=== PATIENT | male | born 1985 | race Caucasian/White ===

== ENCOUNTER 2017-05-05 10:05 | Emergency (ER) | payer SELFPAY ==
[2017-05-05] MEDS ORDERED: HYDROcodone/ACETAMIN 5-325 MG* 1 TAB PO ONE (14:41)
--- NOTE | 2017-05-05 14:48 | UC ---
Minor Trauma HPI - HPI Summary HPI Summary: 32 yo male was at work parking lot this AM slipped on ice no LOC c/o back>neck>left wrist>right wrist pain no bowel or bladder dysfunction no leg pain or paresthesia - History of Current Complaint Chief Complaint: UCGeneralIllness Stated Complaint: BACK INJURY Time Seen by Provider: 05/05/17 14:29 Hx Obtained From: Patient Onset/Duration: Gradual Onset Onset Of Pain: Immediate Severity Initially: Severe Severity Currently: Severe Pain Intensity: 9 Pain Scale Used: Adult Non Verbal Mechanism Of Injury: Fall From A Standing Position Aggravating Factor(s): Ambulation, Deep Breaths, Movement Alleviating Factor(s): Nothing Associated Signs And Symptoms: Negative: Loss Of Consciousness, Ecchymosis, Swelling Related History: Positive: Occupational Injury - Allergies/Home Medications Allergies/Adverse Reactions: Allergies Allergy/AdvReac Type Severity Reaction Status Date / Time No Known Allergies Allergy Verified 05/05/17 11:25 PMH/Surg Hx/FS Hx/Imm Hx Previously Healthy: Yes - Surgical History Surgical History: None - Family History Known Family History: Positive: Hypertension - Social History Alcohol Use: Occasionally Substance Use Type: None Smoking Status (MU): Never Smoked Tobacco Review of Systems Constitutional: Negative Skin: Negative Eyes: Negative ENT: Negative Respiratory: Negative Cardiovascular: Negative Gastrointestinal: Negative Genitourinary: Negative Motor: Negative Neurovascular: Negative Musculoskeletal: Arthralgia, Myalgia Neurological: Negative Psychological: Negative Is Patient Immunocompromised?: No All Other Systems Reviewed And Are Negative: Yes Physical Exam Triage Information Reviewed: Yes Appearance: Well-Appearing, No Pain Distress, Well-Nourished, Other: - BMI39 Vital Signs: Initial Vital Signs Temp 97.2 F 05/05/17 11:26 Pulse 58 05/05/17 11:26 Resp 16 05/05/17 11:26 BP 130/80 05/05/17 11:26 Pulse Ox 99 05/05/17 11:26 Vital Signs Reviewed: Yes Eyes: Positive: Conjunctiva Clear ENT: Negative: Nasal congestion, Nasal drainage, Trismus, Muffled voice, Hoarse voice Neck: Positive: Supple, Tenderness @ - right trapezius- no midline cervical tenderness Respiratory: Positive: Normal breath sounds, No respiratory distress, No accessory muscle use Cardiovascular: Positive: RRR, No Murmur Musculoskeletal: Positive: ROM Limited @ - left wrist painful ROM and snuff box tenderness Neurological: Positive: Alert Psychological Exam: Normal Skin Exam: Normal Diagnostics - Radiology No standard instances Xray Interpretation: No Acute Changes Radiology Interpretation Completed By: Radiologist - left wrist and LS Minor Trauma Course/Dx - Differential Dx/Diagnosis Provider Diagnoses: fall. cervical strain. lumbar strain. left wrist sprain Discharge - Discharge Plan Condition: Stable Disposition: HOME Prescriptions: HYDROcodone/ACETAMIN 5-325 MG* [Lamont 5-325 TAB*] 1 tab PO Q4H PRN #12 tab MDD 4 PRN Reason: Pain Naproxen Sodium [Naproxen Sodium 500 MG TAB] 500 mg PO BID PRN #30 tab PRN Reason: Pain Patient Education Materials: Cervical Strain (ED), Low Back Strain (ED), Wrist Sprain (ED) Forms: *Work Release Referrals: Master Back MD [Primary Care Provider] - Additional Instructions: wear left thumb spica splint if your wrist is not completely back to normal in 7-10 days please return to have it re xrayed rest recheck on 05/08 if back not better Images Front/Back of Body, Lg ([place]): 1 - L2-5 midline tenderness/(-) SLR, lower ext DTRs and strenght intact, slow wide based gait. pain with flexion
[2017-05-05 15:20] VITALS: BP 104/67
--- NOTE | 2017-05-05 15:26 | RAD ---
INDICATION: LEFT scaphoid region wrist pain post fall. COMPARISON: No relevant prior exams available [place] [facility] [place]. TECHNIQUE: AP, lateral, and oblique views LEFT wrist. REPORT: No cortical disruption or suspicious trabecular irregularity of the scaphoid evident to indicate fracture. Negative for fracture within the [id number]. Normal articular alignment. Mild nonfocal soft tissue swelling. IMPRESSION: No radiographic evidence for scaphoid fracture. If there is high index of suspicion for an occult scaphoid fracture repeat exam in 7 - 10 days would be suggested.
--- NOTE | 2017-05-05 15:29 | RAD ---
Indication: Back pain following injury. Comparison: No relevant prior exams available on the [facility] [place] for [place]. Technique: AP, lateral, and oblique views lumbar sacral spine. Report: Transitional segment at the lumbar sacral junction most consistent with lumbarization of S1. No evidence for fracture or spondylolysis at any level. Normal lumbar spine alignment. Preserved disc spaces. Facet joint osteoarthritis at L5-S1 and S1-S2. Unremarkable paraspinal soft tissue contours. IMPRESSION: Radiographic evidence for traumatic injury of the lumbar sacral spine. Variant lumbarization of S1. L5-S1 and S1-S2 facet joint osteoarthritis.
== END 2017-05-05 15:57 | disposition home or self-care (01) ==
LOC: UCEAST 10:05
DX: S16.1XXA Strain of muscle, fascia and tendon at neck level, initial encounter (principal); S39.012A Strain of muscle, fascia and tendon of lower back, initial encounter; S63.502A Unspecified sprain of left wrist, initial encounter; W00.2XXA Other fall from one level to another due to ice and snow, initial encounter; Y93.9 Activity, unspecified; Y92.481 Parking lot as the place of occurrence of the external cause; Y99.0 Civilian activity done for income or pay
CPT/HCPCS: 72110; 99203; G0463

== ENCOUNTER 2017-05-08 10:35 | Emergency (ER) | payer SELFPAY ==
[2017-05-08 11:32] VITALS: BP 104/62
--- NOTE | 2017-05-08 11:54 | UC ---
Back Pain HPI - HPI Summary HPI Summary: Pt presents for continued back pain. He was on 05/05 for this s/p falling and landing on his lower back. His pain has been improving, but still doesn't feel able to return to work. He tells me that his work requires a lot of heavy lifting and he doesn't think he will be able to do this due to back pain. Denies numbness, tingling, radiation of pain, bowel or bladder dysfunction. - History of Current Complaint Chief Complaint: UCBackPain Stated Complaint: RECHECK BACK INJURY Time Seen by Provider: 05/08/17 11:54 Hx Obtained From: Patient Onset/Duration: Sudden Onset Timing: Constant Severity Initially: Mild Severity Currently: Mild Pain Intensity: 3 Pain Scale Used: 0-10 Numeric - Allergies/Home Medications Allergies/Adverse Reactions: Allergies Allergy/AdvReac Type Severity Reaction Status Date / Time No Known Allergies Allergy Verified 05/08/17 11:25 Home Medications: Home Medications NK [No Home Medications Reported] 05/08/17 [History Confirmed 05/08/17] PMH/Surg Hx/FS Hx/Imm Hx Previously Healthy: Yes - Surgical History Surgical History: None - Family History Known Family History: Positive: Hypertension - Social History Occupation: Employed Full-time Lives: With Family Alcohol Use: Occasionally Substance Use Type: None Smoking Status (MU): Never Smoked Tobacco Review of Systems Constitutional: Negative Skin: Negative Respiratory: Negative Cardiovascular: Negative Musculoskeletal: Other: - Low back pain Neurological: Negative Psychological: Negative All Other Systems Reviewed And Are Negative: Yes Physical Exam Triage Information Reviewed: Yes Appearance: Well-Appearing, No Pain Distress, Well-Nourished Vital Signs: Initial Vital Signs Temp 97.9 F 05/08/17 11:26 Pulse 49 05/08/17 11:26 Resp 16 05/08/17 11:26 BP 104/62 05/08/17 11:26 Pulse Ox 99 05/08/17 11:26 Vital Signs Reviewed: Yes Neck: Positive: Supple, Nontender, Other: - FROM Respiratory: Positive: Lungs clear, Normal breath sounds, No respiratory distress Cardiovascular: Positive: RRR, No Murmur, Pulses Normal Musculoskeletal: Positive: Strength Intact - B/L LEs, ROM Intact - B/L LEs, No Edema, Other: - TTP over left lumbar paraspinal muscles. Negative SLR. Negative ROX. Neurological: Positive: Alert, Other: - Sensations intact b/l L3-S1. Psychological: Positive: Age Appropriate Behavior Skin: Negative: rashes Back Pain Course/Dx - Course Course Of Treatment: Low back strain. Continue with current treatment. May return to work without restrictions as of 05/11/17 - Differential Dx/Diagnosis Provider Diagnoses: Low back pain Discharge - Discharge Plan Condition: Stable Disposition: HOME Patient Education Materials: Low Back Strain (ED), Lower Back Exercises (ED) Forms: *Work Release Referrals: Master Back MD [Primary Care Provider] - Additional Instructions: If you develop a fever, shortness of breath, chest pain, new or worsening symptoms - please call your PCP or go to the ED.
== END 2017-05-08 12:03 | disposition home or self-care (01) ==
LOC: UCEAST 10:35
DX: M54.5 Low back pain (principal)
CPT/HCPCS: 99211; G0463

== ENCOUNTER 2018-02-02 18:16 | Emergency (ER) | payer BC, OTHER ==
[2018-02-02 18:49] VITALS: BP 130/76
[2018-02-02] MEDS ORDERED: HYDROcodone/ACETAMIN 5-325 MG* 1 TAB PO ONE (19:00)
[2018-02-02] MEDS ORDERED: Amoxicillin PO (*) 500 MG CAP PO ONE (19:01)
--- NOTE | 2018-02-02 19:06 | UC ---
UC Dental HPI - HPI Summary HPI Summary: broke tooth number 22 yesterday has increased pain no pain relief with ibuprofen or hydrocodone today---unable to go to work today because of the pain- --Is planning to see dentist tomorrow (i am concerned he may not get in due to holiday) - History of Current Complaint Chief Complaint: Ricardo Stated Complaint: TOOTH ACHE Time Seen by Provider: 02/02/18 18:51 Hx Obtained From: Patient Onset/Duration: Sudden Onset, Lasting Days - 1, Still Present Severity: Severe Pain Intensity: 9 Pain Scale Used: 0-10 Numeric Aggravating Factor(s): Heat, Cold, Chewing Alleviating Factor(s): Nothing Related History: Previous Dental Care on Same Tooth - Allergies/Home Medications Allergies/Adverse Reactions: Allergies Allergy/AdvReac Type Severity Reaction Status Date / Time No Known Allergies Allergy Verified 05/08/17 11:25 Home Medications: Home Medications Hydrocodone/Acetaminophen [Hydrocodone-Acetamin 2.5-325] 02/02/18 [History] Ibuprofen TAB* [Motrin TAB* 800 MG] 02/02/18 [History] PMH/Surg Hx/FS Hx/Imm Hx Previously Healthy: Yes - Surgical History Surgical History: None - Family History Known Family History: Positive: Hypertension - Social History Occupation: Employed Full-time Lives: With Family Alcohol Use: Daily Substance Use Type: None Smoking Status (MU): Never Smoked Tobacco Review of Systems All Other Systems Reviewed And Are Negative: Yes Constitutional: Positive: Negative Skin: Positive: Negative Eyes: Positive: Negative ENT: Positive: Dental Pain Respiratory: Positive: Negative Cardiovascular: Positive: Negative Gastrointestinal: Positive: Negative Genitourinary: Positive: Negative Motor: Positive: Negative Neurovascular: Positive: Negative Musculoskeletal: Positive: Negative Neurological: Positive: Negative Psychological: Positive: Negative Is Patient Immunocompromised?: No Physical Exam Triage Information Reviewed: Yes Appearance: Well-Appearing, No Pain Distress, Well-Nourished Vital Signs: Initial Vital Signs Temp 98.4 F 02/02/18 18:38 Pulse 63 02/02/18 18:38 Resp 16 02/02/18 18:38 BP 130/76 02/02/18 18:38 Pulse Ox 99 02/02/18 18:38 Vital Signs Reviewed: Yes Eye Exam: Normal Eyes: Positive: Conjunctiva Clear ENT Exam: Normal ENT: Positive: Normal ENT inspection, Hearing grossly normal, Pharynx normal, Dental tenderness, Uvula midline. Negative: Nasal congestion, Tonsillar swelling, Trismus, Muffled voice, Hoarse voice, Sinus tenderness Dental Exam: Other - multiple lost and decayed teeth---broke number 22 Dental: Positive: Percussion Tenderness @, Gross Decay/Caries @, Dental Fracture @ Neck exam: Normal Neck: Positive: Supple, Nontender Respiratory Exam: Normal Respiratory: Positive: No respiratory distress, No accessory muscle use Cardiovascular Exam: Normal Cardiovascular: Positive: RRR, Pulses Normal, Brisk Capillary Refill Musculoskeletal Exam: Normal Musculoskeletal: Positive: Strength Intact, ROM Intact, No Edema Neurological Exam: Normal Neurological: Positive: Alert, Muscle Tone Normal Psychological Exam: Normal Skin Exam: Normal Dental Complaint Course/Dx - Course Course Of Treatment: ibuprofen, hydrocodne,amoxicillin and topical pain reliever follow with dentist as soon as possible - Differential Dx/Diagnosis Provider Diagnoses: broke and painful tooth #22 Discharge - Sign-Out/Discharge Documenting (check all that apply): Patient Departure All imaging exams completed and their final reports reviewed: No Studies - Discharge Plan Condition: Stable Disposition: HOME Prescriptions: Amoxicillin PO (*) [Amoxicillin 500 MG CAP*] 500 mg PO TID #30 cap Hydrocodone/Acetaminophen [Hydrocodone-Acetamin 5-325 mg] 1 each PO Q4HR PRN # 10 tablet MDD 4 PRN Reason: Pain (Dental) Patient Education Materials: Toothache (ED) Forms: *Work Release Referrals: Master Back MD [Primary Care Provider] - Additional Instructions: Follow with dentist as planned on Saturday - Billing Disposition and Condition Condition: STABLE Disposition: Home
== END 2018-02-02 19:20 | disposition home or self-care (01) ==
LOC: UCEAST 18:16
DX: S02.5XXA Fracture of tooth (traumatic), initial encounter for closed fracture (principal); K08.89 Other specified disorders of teeth and supporting structures; X58.XXXA Exposure to other specified factors, initial encounter; Y92.9 Unspecified place or not applicable
CPT/HCPCS: 99212; A9270-GY; G0463

== ENCOUNTER 2019-03-21 16:03 | Emergency (ER) | payer SELFPAY ==
[2019-03-21 16:23] VITALS: BP 127/71
--- NOTE | 2019-03-21 16:33 | UC ---
Lower Extremity/Ankle HPI - HPI Summary HPI Summary: patient twisted ankle walking on floor today at 2pm. complains of pain lateral ankle, swelling. did apply ice to area after injury - History of Current Complaint Chief Complaint: UCLowerExtremity Stated Complaint: foot injury Time Seen by Provider: 03/21/19 16:26 Hx Obtained From: Patient Onset/Duration: Sudden Onset Severity Initially: Moderate Severity Currently: Mild Pain Intensity: 3 Aggravating Factor(s): Standing, Ambulation Alleviating Factor(s): Rest, Elevation, Ice Able to Bear Weight: Yes Related History: Occupational Injury - Allergies/Home Medications Allergies/Adverse Reactions: Allergies Allergy/AdvReac Type Severity Reaction Status Date / Time No Known Allergies Allergy Verified 03/21/19 16:23 PMH/Surg Hx/FS Hx/Imm Hx Previously Healthy: Yes - Surgical History Surgical History: None - Family History Known Family History: Positive: Hypertension - Social History Occupation: Employed Full-time Lives: With Family Alcohol Use: Daily Substance Use Type: None Smoking Status (MU): Never Smoked Tobacco Review of Systems All Other Systems Reviewed And Are Negative: Yes Constitutional: Positive: Negative Skin: Positive: Negative Respiratory: Positive: Negative Cardiovascular: Positive: Negative Musculoskeletal: Positive: Other: - pain left ankle. Negative: Decreased ROM Neurological: Positive: Negative Psychological: Positive: Negative Is Patient Immunocompromised?: No Physical Exam Triage Information Reviewed: Yes Appearance: Well-Appearing, No Pain Distress, Obese Vital Signs: Initial Vital Signs Temp 97.8 F 03/21/19 16:19 Pulse 52 03/21/19 16:19 Resp 18 03/21/19 16:19 BP 127/71 03/21/19 16:19 Pulse Ox 100 03/21/19 16:19 Vital Signs Reviewed: Yes Respiratory Exam: Normal Respiratory: Positive: Lungs clear Cardiovascular Exam: Normal Musculoskeletal: Positive: Strength Intact, ROM Intact, Other: - mild swelling lateral L ankle Neurological Exam: Normal Psychological Exam: Normal Skin Exam: Normal Diagnostics - Radiology No standard instances Radiology Interpretation Completed By: Radiologist - No ankle fracture Lower Extremity Course/Dx - Differential Dx/Diagnosis Differential Diagnosis/HQI/PQRI: Fracture (Closed), Sprain, Strain Provider Diagnosis: Ankle sprain Discharge ED - Sign-Out/Discharge Documenting (check all that apply): Patient Departure All imaging exams completed and their final reports reviewed: Yes - Discharge Plan Condition: Good Disposition: HOME Patient Education Materials: Ankle Sprain (ED) Forms: *Work Release Referrals: Master Back MD [Primary Care Provider] - Latasha Mccann MD [Medical Doctor] - 2 Weeks (if no better) Additional Instructions: elevate and ice left foot for 48 hours use annie and ankle splint for 7-10 days ibuprofen 600-800mg every 6 hours as needed for pain (take with food) - Billing Disposition and Condition Condition: GOOD Disposition: Home
== END 2019-03-21 17:21 | disposition home or self-care (01) ==
LOC: UCEAST 16:03
DX: S93.402A Sprain of unspecified ligament of left ankle, initial encounter (principal); X50.9XXA Other and unspecified overexertion or strenuous movements or postures, initial encounter; Y93.01 Activity, walking, marching and hiking; Y92.9 Unspecified place or not applicable
CPT/HCPCS: 99213; G0463

== ENCOUNTER 2024-04-28 20:02 | Observation (INO) ==
[2024-04-29] MEDS: Lactated Ringers 1000 ml BAG 1,000 ML IV ONE (01:00)
[2024-04-29] MEDS: Ondansetron 4 mg VIAL 2 MG/ML 2 ml VIAL IV ONE ×2 (01:00→06:45)
[2024-04-29 01:07] LABS: ABS Lymphocytes 1.6 10^3/uL (1.0-4.8); ABS Monocytes 0.6 10^3/uL (0.0-1.1); ABS Neutrophils 7.1 10^3/uL (1.5-7.6); Eosinophil % 0.2 %; Hematocrit 40.6 % (38-53); Hemoglobin 13.7 g/dL (13.2-16.3); Lymphocyte % 17.2 %; Mean Corpuscular Hemoglobin 29.5 pg (27-33); Mean Corpuscular Hgb Conc 33.8 g/dL (31-36); Mean Corpuscular Volume 87.5 fL (80-97); Mean Platelet Volume 7.1 fL (7.5-11.2); Platelet Count 334 10^3/uL (150-450); Red Blood Count 4.64 10^6/uL (4.06-5.63); Red Cell Distribution Width 13.9 % (12-17); White Blood Count 9.4 10^3/uL (3.6-10.2)
[2024-04-29 02:02] LABS: Albumin 4.5 g/dL (3.5-5.7); Albumin/Globulin Ratio 1.4 (1-3); C Reactive Protein 15.43 mg/L (<8.01); Calcium 9.4 mg/dL (8.6-10.3); Creatinine, Serum 0.68 mg/dL (0.67-1.17); Globulin 3.3 g/dL (2-4); Potassium 4.1 mmol/L (3.5-5.0); Total Bilirubin 2.1 mg/dL (0.2-1.0); Total Protein 7.8 g/dL (6.4-8.9); eGFR CKD-EPI 121.3 (>60)
[2024-04-29] MEDS: Iohexol 350 (CONTRAST) 500 ML MDV IV ONE (03:52)
[2024-04-29] MEDS: Lactated Ringers 1000 ml BAG IV.FLUID IV ONE (08:19)
[2024-04-29 08:30] LABS: ABS Basophils 0.1 10^3/uL (0.0-0.1); ABS Eosinophils 0.2 10^3/uL (0.0-0.5); ABS Lymphocytes 2.6 10^3/uL (1.0-4.8); ABS Monocytes 0.6 10^3/uL (0.0-1.1); ABS Neutrophils 5.1 10^3/uL (1.5-7.6); Eosinophil % 2.2 %; Hematocrit 38.9 % (38-53); Hemoglobin 13.4 g/dL (13.2-16.3); Lymphocyte % 30.2 %; Mean Corpuscular Hemoglobin 30.5 pg (27-33); Mean Corpuscular Hgb Conc 34.5 g/dL (31-36); Mean Corpuscular Volume 88.4 fL (80-97); Mean Platelet Volume 7.1 fL (7.5-11.2); Platelet Count 320 10^3/uL (150-450); Red Blood Count 4.39 10^6/uL (4.06-5.63); Red Cell Distribution Width 13.7 % (12-17); White Blood Count 8.6 10^3/uL (3.6-10.2)
[2024-04-29 09:24] LABS: Albumin 4.1 g/dL (3.5-5.7); Albumin/Globulin Ratio 1.4 (1-3); C Reactive Protein 15.59 mg/L (<8.01); Calcium 9.2 mg/dL (8.6-10.3); Creatinine, Serum 0.66 mg/dL (0.67-1.17); Potassium 3.9 mmol/L (3.5-5.0); Total Protein 7.1 g/dL (6.4-8.9); eGFR CKD-EPI 122.4 (>60)
[2024-04-29] MEDS: ceFOXitin 2 GM IVPREMIX 2 GM/50 ML BAG IVPB ONE (09:48)
[2024-04-29] MEDS: metroNIDAZOLE IV 500 MG/100ML 500 MG/100 ML BAG IVPB ONE (11:16)
[2024-04-29] MEDS ORDERED: HYDROmorphone 1 MG/1 ML SYRINGE IV SLOW PU PRN (20:46)
[2024-04-29] MEDS ORDERED: Ondansetron 4 mg VIAL 2 MG/ML 2 ml VIAL IV PRN (20:46)
[2024-04-29] MEDS ORDERED: metroNIDAZOLE IV 500 MG/100ML 100 ML IVPB SCH (21:00)
[2024-04-29] MEDS: Lactated Ringers 1000 ml BAG 1,000 ML IV SCH (21:33)
[2024-04-29] MEDS: ceFOXitin 2 GM IVPREMIX 2 GM/50 ML BAG IVPB SCH (21:33)
[2024-04-30] MEDS ORDERED: Bupivacaine 0.5% SDV PF 30ML VIAL ONE (05:55)
[2024-04-30 06:03] LABS: ABS Basophils 0.1 10^3/uL (0.0-0.1); ABS Eosinophils 0.3 10^3/uL (0.0-0.5); ABS Lymphocytes 2.3 10^3/uL (1.0-4.8); ABS Monocytes 0.6 10^3/uL (0.0-1.1); ABS Neutrophils 3.4 10^3/uL (1.5-7.6); ABS Nucleated RBC 0.01 10^3/ul; Hematocrit 36.4 % (38-53); Hemoglobin 12.5 g/dL (13.2-16.3); Lymphocyte % 34.6 %; Mean Corpuscular Hemoglobin 30.4 pg (27-33); Mean Corpuscular Hgb Conc 34.4 g/dL (31-36); Mean Corpuscular Volume 88.1 fL (80-97); Mean Platelet Volume 7.4 fL (7.5-11.2); Nucleated Red Blood Cells % 0.1 %/100WBC (0.0-0.8); Platelet Count 295 10^3/uL (150-450); Red Blood Count 4.13 10^6/uL (4.06-5.63); Red Cell Distribution Width 13.8 % (12-17); White Blood Count 6.6 10^3/uL (3.6-10.2)
[2024-04-30 06:41] LABS: Albumin 3.6 g/dL (3.5-5.7); Albumin/Globulin Ratio 1.3 (1-3); Calcium 8.5 mg/dL (8.6-10.3); Creatinine, Serum 0.75 mg/dL (0.67-1.17); Globulin 2.7 g/dL (2-4); Total Bilirubin 1.6 mg/dL (0.2-1.0); Total Protein 6.3 g/dL (6.4-8.9); eGFR CKD-EPI 117.7 (>60)
[2024-04-30] MEDS ORDERED: Rocuronium 50 mg VIAL 10 mg/ml 5 ml VIAL (50 mg) ONE ×2 (12:13→12:27)
[2024-04-30] MEDS ORDERED: Propofol 10 MG/ML 20 ML BTL ONE (12:14)
[2024-04-30] MEDS ORDERED: Midazolam 2 mg/2 ml VIAL 1 mg/ml 2 ml VIAL (2 mg) ONE (12:26)
[2024-04-30] MEDS ORDERED: fentaNYL 100 mcg/2 ml 50 MCG/ML VIAL ONE ×3 (12:30→15:16)
[2024-04-30] MEDS ORDERED: Ondansetron 4 mg VIAL 2 MG/ML 2 ml VIAL ONE (13:06)
[2024-04-30] MEDS ORDERED: Dexamethasone IV 4 MG/ML VIAL 1 ml VIAL ONE (13:06)
[2024-04-30] MEDS ORDERED: Glycopyrrolate IV 0.2 MG/ML 1 ML VIAL ONE (13:25)
[2024-04-30] MEDS ORDERED: Acetaminophen IV 1 GM/100ML 1,000 MG/100 ML BAG IV ONE ×2 (13:29→15:19)
[2024-04-30] MEDS ORDERED: Metoclopramide 5 MG/ML VIAL (10 mg) IV PRN (15:19)
[2024-04-30] MEDS ORDERED: fentaNYL 100 mcg/2 ml 50 MCG/ML VIAL IV PRN (15:19)
[2024-04-30] MEDS ORDERED: Scopolamine 1 mg/72hr PATCH TRANSDERM ONE (15:19)
[2024-04-30] MEDS ORDERED: Buffered Lidocaine 1% SYRIN 1 ml INTRADERM ONE (15:19)
[2024-04-30] MEDS ORDERED: Naloxone 0.4 mg VIAL 0.4 mg/ml 1 ml VIAL IV PRN (15:19)
[2024-04-30] MEDS ORDERED: Ondansetron 4 mg VIAL 2 MG/ML 2 ml VIAL IV PRN (15:19)
[2024-04-30] MEDS ORDERED: NS 0.45% 1000 ml BAG 1,000 ML IV SCH (16:00)
[2024-04-30] MEDS ORDERED: Lactated Ringers 1000 ml BAG 1,000 ML IV SCH (16:00)
[2024-04-30 16:45] VITALS: BP 139/77
== END 2024-04-30 16:55 | disposition home or self-care (01) ==
LOC: EDHOLD 20:02 → ED 20:02 → MED 04-29 23:28
PROVIDERS: ADMIT Surgery; ATTEND Surgery